=== PATIENT | male | born 1965 | race Caucasian/White ===

== ENCOUNTER 2017-11-02 10:07 | Inpatient (IN) | payer OTHER ==
[~2017-11-02] VITALS: Ht 175.3 cm; Wt 77.3 kg
--- NOTE | 2017-11-02 10:52 | ED GENERAL ADULT ---
History of Present Illness General Chief Complaint: General Adult Stated Complaint: CALLED BY DR DELEON TO COME BACK + BC Source: patient, family, old records Exam Limitations: no limitations Vital Signs & Intake/Output Vital Signs & Intake/Output Vital Signs Date Time Temp Pulse Resp B/P B/P Pulse O2 O2 Flow FiO2 Mean Ox Delivery Rate 11/02 1448 98.9 75 18 112/54 95 Room Air 11/02 1227 99.7 62 18 117/68 11/02 1227 99.7 62 18 117/68 98 Room Air 11/02 1127 99.8 11/02 1110 97 Room Air 11/02 1013 100.0 105 18 148/90 96 Room Air Allergies Coded Allergies: Pork/Porcine Containing Products (Mild, HIVES 11/02/17) chicken derived (Mild, HIVES 11/02/17) turkey (Mild, HIVES 11/02/17) Reconcile Medications No Known Home Medications Triage Note: PT RETURNS TO ED AFTER RECEIVING A CALL FROM DR. DELEON RE: + BC. PT STATES HE FEELS WEAK AND IS STILL SHAKING. Triage Nurses Notes Reviewed? yes Onset: Last week Duration: day(s):, constant, continues in ED Timing: recent history Injury Environment: home Severity: moderate, severe No Modifying Factors: none Associated Symptoms: chest pain HPI: 5 days prior to admission patient complains of right-sided chest and abdominal discomfort nausea chills body aches weakness anorexia. He was seen yesterday. He returns with continued symptoms. He denies fever vomiting diarrhea shortness of breath cough headache dysuria rash bleeding. Past History Travel History Traveled to [place] past 21 day No Medical History Any Pertinent Medical History? 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 No Review of Systems Review of Systems Constitutional: Reports: see HPI, chills, malaise, weakness. EENTM: Reports: no symptoms. Respiratory: Reports: no symptoms. Cardiovascular: Reports: see HPI, chest pain. GI: Reports: see HPI, abdominal pain, nausea. Genitourinary: Reports: no symptoms. Musculoskeletal: Reports: no symptoms. Skin: Reports: no symptoms. Neurological/Psychological: Reports: no symptoms. Hematologic/Endocrine: Reports: no symptoms. Immunologic/Allergic: Reports: no symptoms. All Other Systems: Reviewed and Negative Physical Exam Physical Exam General Appearance: well developed/nourished, alert, awake, anxious, mild distress Head: atraumatic, normal appearance Eyes: Bilateral: normal appearance, PERRL, EOMI. Ears, Nose, Throat: normal pharynx, normal ENT inspection Neck: normal inspection, supple, full range of motion, no midline tenderness Respiratory: normal breath sounds, chest non-tender, no respiratory distress, quiet respiration, lungs clear Cardiovascular: regular rate/rhythm, normal peripheral pulses, norml femoral pulses equa Peripheral Pulses: 4+ carotid (R), 4+ carotid (L) Gastrointestinal: normal bowel sounds, soft, non-tender, no organomegaly Back: normal inspection, normal range of motion, no vertebral tenderness Extremities: normal inspection, normal capillary refill, normal range of motion, no edema, no ligament instability Neurologic/Psych: no motor/sensory deficits, awake, alert, oriented x 3, normal gait, normal mood/affect, burner hand II-XII nml as tested Reflexes: 2+: bicep (R), bicep (L). Skin: intact, normal color, warm/dry Lymphatic: no anterior cervical kalee Core Measures ACS in differential dx? No CVA/TIA Diagnosis: No Sepsis Present: No Sepsis Focused Exam Completed? No Progress Differential Diagnoses I considered the following diagnoses in my evaluation of the patient: Lyme Disease anaplasmosis babesiosis Plan of Care: Orders Procedure Date/time Status Regular Diet 11/02 L Active Weight 11/02 1426 Active Vital Signs 11/02 1426 Active Teach/Educate 11/02 142 Active Pain Treatment and Response 11/02 1426 Active Nutritional Intake, Monitor 11/02 1426 Active Isolation 11/02 1426 Active Intake & Output 11/02 1426 Active Patient Care Conference 11/02 1426 Active Activity/Ambulation 11/02 1426 Active URINE OSMOLALITY 11/02 1231 Active URINE LYTES, SPOT 11/02 1231 Active URINE DRUGS OF ABUSE 11/02 1225 Complete Pathway - chart 11/02 1221 Active House Staff 11/02 1221 Active Code Status 11/02 1221 Active Intake & Output 11/02 1109 Active Patient Data 11/02 1104 Active THYROID STIMULATING HORMONE 11/02 1050 Complete PHOSPHORUS 11/02 1050 Complete MAGNESIUM 11/02 1050 Complete LACTIC ACID 11/02 1050 Complete FOLIC ACID 11/02 1050 Complete ETHANOL 11/02 1050 Complete DIRECT BILIRUBIN 11/02 1050 Complete VITAMIN B12 11/02 1050 Complete OXYGEN SETUP (GEN) 11/02 1034 Active Saline Lock 11/02 1034 Active Admit to inpatient 11/02 1034 Active Vital Signs 11/02 1034 Active Activity/Ambulation 11/02 1034 Active Code Status 11/02 1034 Complete Add-on Test (ER Only) 11/02 1021 Active BLOOD CULTURE 11/02 1021 Active COMPREHENSIVE METABOLIC PANEL 11/02 1021 Complete CBC WITHOUT DIFFERENTIAL 11/02 1021 Complete Lab Add-on Test 11/02 UNK Active VTE Mechanical Prophylaxis 11/02 UNK Active CIWA 11/02 UNK Active Current Medications Sig/Jil Start time Last Medication Dose Stop Time Status Admin Ibuprofen 400 MG Q6P PRN 11/02 1445 AC 11/02 (Motrin) 1453 Gabapentin 100 MG Q8 11/02 1400 AC 11/02 (Neurontin) 1422 Folic Acid 1 MG DAILY 11/02 1352 AC 11/02 (Folic Acid) 1422 Multivitamins 1 TAB DAILY 11/02 1352 AC 11/02 (Theragran Vitamins) 1422 Thiamine HCl 50 MG DAILY 11/02 1352 AC 11/02 (Vitamin B1) 1422 Doxycycline Hyclate 100 MG DAILY 11/02 1225 AC 11/02 (Vibramycin) 1252 Dextrose/Water 100 ML (D5W) Laboratory Tests 11/02/17 1231: Urine Opiates Screen < 100, Methadone Screen < 40, Barbiturate Screen < 60, Ur Phencyclidine Scrn < 6.00, Amphetamines Screen 151, U Benzodiazepines Scrn < 85, Urine Cocaine Screen < 50, Urine Cannabis Screen 79.50 H 11/02/17 1050: Anion Gap 11, Estimated GFR > 60, BUN/Creatinine Ratio 14.3, Glucose 106 H, Lactic Acid 0.9, Calcium 8.8, Phosphorus 2.5, Magnesium 1.8, Total Bilirubin 2.2 H, Direct Bilirubin 0.5 H, AST 33, ALT 56, Alkaline Phosphatase 74, Total Protein 7.4, Albumin 4.0, Globulin 3.4, Albumin/Globulin Ratio 1.2, Vitamin B12 410, Folate 16.2, TSH 1.420, CBC w Diff MAN DIFF ORDERED, RBC 4.57 L, MCV 91.4, MCH 32.0 H, MCHC 35.0, RDW 13.4, MPV 7.7, Gran % 60.0, Lymphocytes % 24.2, Monocytes % 15.0 H, Eosinophils % 0.2, Basophils % 0.6, Absolute Granulocytes 2.7, Segmented Neutrophils 55, Band Neutrophils 5, Absolute Lymphocytes 1.1 L, Lymphocytes 27, Monocytes 12 H, Absolute Monocytes 0.7 H, Absolute Eosinophils 0, Basophils 1, Absolute Basophils 0, Platelet Estimate DECREASED, Serum Alcohol < 10.0 Microbiology 11/02 1105 BLOOD: Blood Culture - RECD 11/02 1050 BLOOD: Blood Culture - RECD Initial ED EKG: none Departure Departure Time of Disposition: 105 Disposition: STILL A PATIENT Condition: Stable Clinical Impression Primary Impression: Anaplasmosis Secondary Impressions: Thrombocytopenia Referrals: Patient Has No Primary Care Dr (PCP/Family) Departure Forms: Customer Survey General Discharge Information Prescriptions: Current Visit Scripts No Known Home Medications Admission Note Spoke With: Prema Santos MD Documentation of Exam: Documentation of any treatments & extenuating circumstances including Concerns Regarding Discharge (functional status, medication knowledge or non-compliance, living conditions, etc.) that warrant an admission rather than observation: IV fluids IV antiemetics and IV analgesia follow cultures and titers antibiotics for anaplasmosis infectious disease evaluation continuing care discharge planning Critical Care Note Critical Care Note Critical Care Time: non-applicable
[2017-11-02 11:04] LABS: ABSOLUTE BASOPHIL COUNT 0 /CUMM (0.0-0.2); ABSOLUTE EOSINOPHIL COUNT 0 /CUMM (0.0-0.7); ABSOLUTE GRANULOCYTE CT 2.7 /CUMM (1.4-6.5); ABSOLUTE LYMPH COUNT 1.1 /CUMM (1.2-3.4); ABSOLUTE MONOCYTE COUNT 0.7 /CUMM (0.10-0.60); BASOPHIL % 0.6 % (0.0-2.0); EOSINOPHIL % 0.2 % (0-5); HEMATOCRIT 41.8 % (42-52); MEAN CORPUSCULAR VOLUME 91.4 FL (80.0-94.0); MEAN PLATELET VOLUME 7.7 FL (7.4-10.4); RBC DISTRIBUTION WIDTH 13.4 % (11.5-14.5); RED BLOOD CELL CT 4.57 /CUMM (4.70-6.10); WHITE BLOOD CELL COUNT 4.5 /CUMM (4.8-10.8)
[2017-11-02 11:36] LABS: PLATELET COUNT 61 /CUMM (130-400)
--- NOTE | 2017-11-02 12:12 | History & Physical ---
Nandini SÁNCHEZ,[facility] 11/02/17 1206: General Information and HPI MD Statement: I have seen and personally examined SHRUTI ALMANZAR and documented this H&P. The patient is a 52 year old M who presented with a patient stated chief complaint of [fever and fatigue]. Source of Information: patient, family Exam Limitations: no limitations History of Present Illness: 52-year-old male with a PMHx significant for bilateral peripheral neuropathy and alcohol abuse who presented to the ED yesterday complaining of 3 days of fever, chills, generalized fatigue, nausea and intermittent RUQ & right lower chest pain that is 2/10 and last for few minutes in the morning. The patient did not follow with any physician for long time. He is not taking any medication at home. He reports drinking 6-8 beers every other day, last drink was 4 days ago. He reports previous admission for alcohol detox but denies history of seizure, ICU admission, DT, OR hallucination. The patient reports lower extremity tingling for long years, he was told it's related to alcohol drinking, he was on Lyrica for a few years, currently he is not on any medication. The patient denies any other current active complaints. 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 Denies: diaphoresis, malaise. EENTM: Denies: visual changes, hearing changes. Cardiovascular: Denies: chest pain, orthopena, palpitations, peripheral edema, syncope. Respiratory: Reports: short of breath (BASE LINE). Denies: cough, orthopnea, sputum production, stridor, wheezing. GI: Reports: abdominal pain (INTERMITTENT, RUQ, 2/10), constipation, nausea. Denies : bloating, diarrhea, distention, vomiting. Genitourinary: Denies: dysuria, hematuria. Musculoskeletal: Reports: muscle pain. Denies: back pain, joint pain, joint swelling, muscle stiffness. Skin: Reports: lesions (MULTIPLE BITES). Neurological/Psychological: Denies: anxiety, ataxia, confusion, depressed, dementia, headache. Exam & Diagnostic Data Last 24 Hrs of Vital Signs/I&O Vital Signs Date Time Temp Pulse Resp B/P B/P Pulse O2 O2 Flow FiO2 Mean Ox Delivery Rate 11/02 1227 99.7 62 18 117/68 11/02 1227 99.7 62 18 117/68 98 Room Air 11/02 1127 99.8 11/02 1110 97 Room Air 11/02 1013 100.0 105 18 148/90 96 Room Air Intake & Output 11/02 1600 11/02 0800 11/02 0000 Intake Total 1000 Output Total Balance 1000 Intake, IV 1000 Patient 68.039 kg Weight Weight Reported by Patient Measurement Method Physical Exam General Appearance Alert, Oriented X3, Cooperative, No Acute Distress Skin MULTIPLE MOSQUITO VERSUS TICK BITES, OVER RIGHT LOWER EXTREMITY, LEFT UPPER THIGH, RIGHT LOWER BACK. NO OTHER BRUSH WERE NOTED HEENT Atraumatic, PERRLA, EOMI, Mucous Membr. moist/pink Neck No JVD Cardiovascular Regular Rate, Normal S1, Normal S2, No Murmurs Lungs Clear to Auscultation, Normal Air Movement Abdomen Normal Bowel Sounds, Soft, No Tenderness Neurological Normal Gait, Normal Speech Extremities No Clubbing, No Cyanosis, No Edema Last 24 Hrs of Labs/[place]: Laboratory Tests 11/02/17 1231: Methadone Screen Pending, Barbiturate Screen Pending, Ur Phencyclidine Scrn Pending, Amphetamines Screen Pending, U Benzodiazepines Scrn Pending, Urine Cocaine Screen Pending, Urine Cannabis Screen Pending 11/02/17 1050: Anion Gap 11, Estimated GFR > 60, BUN/Creatinine Ratio 14.3, Glucose 106 H, Lactic Acid Pending, Calcium 8.8, Phosphorus Pending, Magnesium Pending, Total Bilirubin 2.2 H, Direct Bilirubin Pending, AST 33, ALT 56, Alkaline Phosphatase 74, Total Protein 7.4, Albumin 4.0, Globulin 3.4, Albumin/Globulin Ratio 1.2, Vitamin B12 Pending, Folate Pending, TSH Pending, CBC w Diff MAN DIFF ORDERED, RBC 4.57 L, MCV 91.4, MCH 32.0 H, MCHC 35.0, RDW 13.4, MPV 7.7, Gran % 60.0, Lymphocytes % 24.2, Monocytes % 15.0 H, Eosinophils % 0.2, Basophils % 0.6, Absolute Granulocytes 2.7, Segmented Neutrophils 55, Band Neutrophils 5, Absolute Lymphocytes 1.1 L, Lymphocytes 27, Monocytes 12 H, Absolute Monocytes 0.7 H, Absolute Eosinophils 0, Basophils 1, Absolute Basophils 0, Platelet Estimate DECREASED Microbiology 11/02 1105 BLOOD: Blood Culture - RECD 11/02 1050 BLOOD: Blood Culture - RECD Assessment/Plan Assessment: This is 52-year-old male with PMHx of alcohol abuse, peripheral neuropathy, and upper GI bleed 2/2 peptic ulcer, who presented with 4 days of fever, chills, nausea, and abdominal pain. Blood smear from yesterday showed RBCs inclusion bodies suspicious for tick transmitted disease. The patient currently is not complaining of abdominal pain. He has elevated total bilirubin up to 2.2 down from 2.7 yesterday. Given his history of alcohol use with last drink being 4 days ago I do not anticipate alcohol withdrawal symptom however we will start him on CIWA score. He has mild hyponatremia possibly secondary to dehydration but given the dental mass on adrenal on CT, we will send for urine osmolarity and electrolytes. Problem list: * Fever and fatigue most likely 2/2 tick transmitted disease (TTD) * Thrombocytopenia possibly 2/2 alcohol abuse and TTD * Mild hyponatremia most likely 2/2 dehydration given poor oral intake * Elevated total bilirubin, improved compared to yesterday. 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 * Encourage oral intake, follow Na+, urine electrolytes and osmolarity * Instruct patient to follow with endocrinology for incidental adrenal mass -DVT PPx with ALPS, hold on pharmacological anticoagulation given low platelet -Regular diet -FC As Ranked By This Provider Problem List: 1. Thrombocytopenia 2. Abdominal pain 3. Lesion of adrenal gland 4. Constipation 5. Anaplasmosis Core Measures/Misc (01/26) Acute Coronary Syndrome ACS Diagnosis: No Congestive Heart Failure Congestive Heart Failure Diagnosis No Cerebrovascular Accident CVA/TIA Diagnosis: No VTE (View Protocol) VTE Risk Factors Age>40 No Mechanical VTE Prophylaxis d/t N/A MechProphylax Ordered No VTE Pharm Prophylaxis d/t Platelets below ref range Sepsis (View protocol) Sepsis Present: No If YES complete Sepsis Event Note If YES complete Sepsis Event Note Prema Santos MD 11/02/17 1544: Core Measures/Misc (01/26) Sepsis (View protocol) If YES complete Sepsis Event Note If YES complete Sepsis Event Note Attending MD Review Statement Attending Statement Attending MD Statement: examined this patient, discuss w/resident/PA/MORTICIAN INVESTIGATOR, agreed w/resident/PA/MORTICIAN INVESTIGATOR, reviewed EMR data (avail) Attending Assessment/Plan: 52M PMH bilateral peripheral neuropathy and alcohol abuse presenting with 3 days of fever, fatigue, myalgia, seen in the ED one day prior, recalled today after found to have RBC inclusions on peripheral blood smear consistent with Babesiosis. Febrile 100.0 here, stable vitals, WBC 4.3, platelets 60, normal LFTS and renal function. Patient does not recall getting bit by a tick. He is nauseous but otherwise no complaints aside from above. 1. Babesiosis 2. Thrombocytopenia Plan - Admit to general medicine - Start Atovaquone and Azithromycin - ID consult - Send babesia studies - Send Lyme and Anaplasma - Blood culture - Continue home medications - DVT PPx
[2017-11-02 12:27] VITALS: BP 117/68
[2017-11-02 14:48] VITALS: BP 112/54
--- NOTE | 2017-11-02 15:46 | Admission Certification ---
Admission Certification Certification Statement - As attending physician, I certify that at the time of - admission, based on clinical presentation, severity of - symptoms, need for further diagnostic testing and - therapeutic interventions, and risk of adverse outcomes - without in-hospital treatment, in my clinical assessment, - this patient requires an acute hospital stay for a minimum - of two nights or longer. I have also considered psychsocial - factors such as support system, advanced age, financial - issues, cognitive issues, and failed out-patient treatments, - past re-admission history, safety of patient, and lack of - compliance as applicable. Specific rationale supporting this admission is: Babesiosis with fever and thrombocytopenia
[2017-11-02 16:00] VITALS: BP 116/60
[2017-11-02 16:37] VITALS: BP 116/60
[2017-11-02 20:00] VITALS: BP 114/80
[2017-11-02 21:28] VITALS: BP 114/80
[2017-11-03] VITALS (8 sets, daily range): BP systolic 104–124; BP diastolic 56–76
--- NOTE | 2017-11-03 07:24 | PN- Housestaff ---
See Addendum Subjective Follow-up For: tick transmitted infection Subjective: febrile overnight tmax 100.5 poor appetite but was able to eat breakfast this morning complains of feeling dehydrated, fatigued, and of chronic lower extremity neuropathic pain for which he took lyrica in the past and self medicates with alcohol Review of Systems Constitutional: Reports: see HPI. Objective Last 24 Hrs of Vital Signs/I&O Vital Signs Date Time Temp Pulse Resp B/P B/P Pulse O2 O2 Flow FiO2 Mean Ox Delivery Rate 11/03 0638 99.7 11/03 0600 99.8 71 20 124/72 11/03 0540 99.8 11/03 0425 99.8 71 20 124/72 95 11/03 0001 100.5 70 20 124/76 95 11/03 0000 100.5 70 20 124/76 11/02 2128 98.4 66 20 114/80 96 11/02 2000 98.4 66 20 114/80 11/02 1637 98.6 57 20 116/60 95 Room Air 11/02 1600 98.6 57 20 116/60 11/02 1448 98.9 75 18 112/54 95 Room Air 11/02 1227 99.7 62 18 117/68 11/02 1227 99.7 62 18 117/68 98 Room Air Intake & Output 11/03 1600 11/03 0800 11/03 0000 Intake Total 120 460 Output Total 200 300 Balance -80 160 Intake, IV 260 Intake, Oral 120 200 Number 0 Bowel Movements Output, Urine 200 300 Physical Exam General Appearance: Alert, Oriented X3, Cooperative, No Acute Distress Cardiovascular: Regular Rate, Normal S1, Normal S2, No Murmurs Lungs: Clear to Auscultation, Normal Air Movement Abdomen: Normal Bowel Sounds, Soft, No Tenderness, No Masses Extremities: No Clubbing, No Cyanosis, No Edema, Normal Pulses Current Medications: Current Medications Sig/Jil Start time Last Medication Dose Route Stop Time Status Admin Atovaquone 750 MG BID 11/02 2099 AC 11/03 PO 0800 Atovaquone 750 MG DAILY 11/02 1630 DC PO Azithromycin 250 MG DAILY 11/03 0900 AC 11/03 PO 11/06 0901 0800 Azithromycin 500 MG Q24H 11/02 1800 DC 11/02 Sodium Chloride 250 ML IV 11/02 2300 1811 Doxycycline Hyclate 100 MG BID 11/02 2099 AC 11/03 PO 0800 Doxycycline Hyclate 100 MG DAILY 11/02 1225 DC 11/02 Dextrose/Water 100 ML IV 11/02 2100 1252 Folic Acid 1 MG DAILY 11/02 1352 AC 11/03 PO 0800 Gabapentin 100 MG Q8 11/02 1400 AC 11/03 PO 0530 Ibuprofen 400 MG Q6P PRN 11/02 1445 AC 11/03 PO 0540 Multivitamins 1 TAB DAILY 11/02 1352 AC 11/03 PO 0800 Sodium Chloride 1,000 ML Q10H 11/03 0845 AC IV 11/03 1844 Thiamine HCl 50 MG DAILY 11/02 1352 AC 11/03 PO 0800 Last 24 Hrs of Lab/[place] Results Last 24 Hrs of Labs/Mics: Laboratory Tests 11/03/17 0745: Anion Gap 8, Estimated GFR > 60, BUN/Creatinine Ratio 12.9, CBC w Diff NO MAN DIFF REQ, RBC 4.16 L, MCV 91.8, MCH 31.9 H, MCHC 34.7, RDW 13.6, MPV 8.2, Gran % 45.6, Lymphocytes % 37.3, Monocytes % 15.4 H, Eosinophils % 0.9, Basophils % 0.8, Absolute Granulocytes 1.6, Absolute Lymphocytes 1.3, Absolute Monocytes 0.5 , Absolute Eosinophils 0, Absolute Basophils 0 11/02/17 1231: Urine Osmolality Cancelled, Ur Random Creatinine Cancelled, Ur Random Sodium Cancelled, Ur Random Potassium Cancelled, Fraction Sodium Excret Cancelled 11/02/17 1231: Urine Opiates Screen < 100, Methadone Screen < 40, Barbiturate Screen < 60, Ur Phencyclidine Scrn < 6.00, Amphetamines Screen 151, U Benzodiazepines Scrn < 85, Urine Cocaine Screen < 50, Urine Cannabis Screen 79.50 H, Urine Osmolality 707, Ur Random Creatinine 147.7, Ur Random Sodium 113 H, Ur Random Potassium 44.6, Fraction Sodium Excret 0.4 Assessment/Plan Assessment: 52 year old male with PMH of alcohol abuse, peripheral neuropathy, and upper GI bleed 2/2 peptic ulcer disease presented with complaints of several days of fever, chills, nausea, abdominal pain, and anorexia. A peripheral smear ordered from ED visit showed RBCs inclusion bodies suspicious for tick transmitted disease. Tick transmitted disease: Probable babesia infection Fever to 100.5 overnight Complains of fatigue, poor appetite, leukopenia, thrombocytopenia and hyperbilirubinemia Some laboratory derangements could be attributed to alcohol but were previously wnl 2017 RBC inclusions noted of previous ED visit Tick panel pending Continue azithromycin, atovaquone, and clindamycin for probable babesia infection Infectious disease consultation Spleen is slightly enlarged on CT Trend CBC to monitor for hemolysis Repeat peripheral smear tomorrow to monitor response to treatment History of alcohol abuse: CIWA scoring Vitamin supplements Start gabapentin 100mg TID for neuropathy Incidental adrenal mass: Outpatient endocrinology follow up 2.5 x 2.8 cm low-attenuation right adrenal lesion Regular diet DVT ppx-ALPs, no anticoagulation with thrombocytopenia Full code Problem List: 1. Thrombocytopenia 2. Abdominal pain 3. Lesion of adrenal gland 4. Tick-borne fever Pain Ratin Pain Location: b/l LE Pain Goal: Pain 4 or less Pain Plan: neurontin Tomorrow's Labs & Rationales: cbc, lfts
[2017-11-03 09:09] LABS: ABSOLUTE BASOPHIL COUNT 0 /CUMM (0.0-0.2); ABSOLUTE EOSINOPHIL COUNT 0 /CUMM (0.0-0.7); ABSOLUTE MONOCYTE COUNT 0.5 /CUMM (0.10-0.60); WHITE BLOOD CELL COUNT 3.4 /CUMM (4.8-10.8)
[2017-11-03 09:46] LABS: ABSOLUTE GRANULOCYTE CT 1.6 /CUMM (1.4-6.5); ABSOLUTE LYMPH COUNT 1.3 /CUMM (1.2-3.4); BASOPHIL % 0.8 % (0.0-2.0); EOSINOPHIL % 0.9 % (0-5); GRANULOCYTE % 45.6 % (42.2-75.2); HEMATOCRIT 38.2 % (42-52); MEAN CORPUSCULAR HGB 31.9 PG (27.0-31.0); MEAN CORPUSCULAR HGB CONC 34.7 G/DL (33.0-37.0); MEAN CORPUSCULAR VOLUME 91.8 FL (80.0-94.0); MEAN PLATELET VOLUME 8.2 FL (7.4-10.4); RBC DISTRIBUTION WIDTH 13.6 % (11.5-14.5)
[2017-11-03 10:20] LABS: PLATELET COUNT 59 /CUMM (130-400)
[2017-11-03 10:23] LABS: RED BLOOD CELL CT 4.16 /CUMM (4.70-6.10)
--- NOTE | 2017-11-03 12:30 | Cons- Infect Disease ---
General Information and HPI Consulting Request Date of Consult: 11/03/17 Requested By: Eduarda Brower MD Reason for Consult: Peripheral smear with intra-erythrocytic ring forms Source of Information: patient, old records Exam Limitations: poor historian History of Present Illness: This is a 52-year-old man with a history of a peripheral neuropathy, presumably alcohol induced, seen in the emergency room one day prior to admission with a three day history of right upper quadrant/epigastric pain, nausea with decreased p.o. intake and weakness, found to be afebrile with a white blood cell count of 4.8, H&H of 15 and 43 and a platelet count of 67,000, with a negative urinalysis and a CT of the abdomen and pelvis revealing a right adrenal lesion, discharged home and called back on the next day, November 02, for admission because of the peripheral smear results. On admission he had a temperature of 100. Laboratory data revealed a white blood cell count of 4.5, H&H 15 and 42 and platelets 61, 000, BUN/creatinine 10 and 0.7, bilirubin 2.2. He was begun on Azithromycin and Atovaquone as well as Doxycycline. He had a low-grade fever to 100.5 overnight. At present he feels somewhat improved with decreased abdominal pain. 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 Home Services at Home: None Smoking Status: Current Everyday Smoker ETOH Use: occasional use Illicit Drug Use: denies illicit drug use Review of Systems Review of Systems All Other Systems: Reviewed and Negative Exam & Diagnostic Data Last 24 Hrs of Vital Signs/I&O Vital Signs Date Time Temp Pulse Resp B/P B/P Pulse O2 O2 Flow FiO2 Mean Ox Delivery Rate 11/03 0638 99.7 11/03 0600 99.8 71 20 124/72 11/03 0540 99.8 11/03 0425 99.8 71 20 124/72 95 11/03 0001 100.5 70 20 124/76 95 11/03 0000 100.5 70 20 124/76 11/02 2128 98.4 66 20 114/80 96 11/02 2000 98.4 66 20 114/80 11/02 1637 98.6 57 20 116/60 95 Room Air 11/02 1600 98.6 57 20 116/60 11/02 1448 98.9 75 18 112/54 95 Room Air 11/02 1227 99.7 62 18 117/68 11/02 1227 99.7 62 18 117/68 98 Room Air Intake & Output 11/03 1600 11/03 0800 11/03 0000 Intake Total 120 460 Output Total 200 300 Balance -80 160 Intake, IV 260 Intake, Oral 120 200 Number 0 Bowel Movements Output, Urine 200 300 Physical Exam Other Physical Findings: He is awake and alert in no acute distress. T-max 100.5. Skin reveals two small erythematous lesions, one in the right axilla and one in the left groin, with no bull's-eye rash. HEENT exam is negative. Neck is supple with no adenopathy. Lungs are clear. Heart regular rhythm with no murmur. Abdomen is soft, nontender with positive bowel sounds. Back no CVA tenderness. Extremities no cyanosis, clubbing or edema. Neuro is without focality. Last 24 Hours of Lab Results: Laboratory Tests 11/03 11/02 11/02 0745 1231 1231 Chemistry Sodium (137 - 145 mmol/L) 136 L Potassium (3.5 - 5.1 mmol/L) 3.8 Chloride (98 - 107 mmol/L) 103 Carbon Dioxide (22 - 30 mmol/L) 25 Anion Gap (5 - 16) 8 BUN (9 - 20 mg/dL) 9 Creatinine (0.7 - 1.2 mg/dL) 0.7 Estimated GFR (>60 ml/min) > 60 BUN/Creatinine Ratio (7 - 25 %) 12.9 Hematology CBC w Diff NO MAN DIFF REQ WBC (4.8 - 10.8 /CUMM) 3.4 L RBC (4.70 - 6.10 /CUMM) 4.16 L Hgb (14.0 - 18.0 G/DL) 13.3 L Hct (42 - 52 %) 38.2 L MCV (80.0 - 94.0 FL) 91.8 MCH (27.0 - 31.0 PG) 31.9 H MCHC (33.0 - 37.0 G/DL) 34.7 RDW (11.5 - 14.5 %) 13.6 Plt Count (130 - 400 /CUMM) 59 L MPV (7.4 - 10.4 FL) 8.2 Gran % (42.2 - 75.2 %) 45.6 Lymphocytes % (20.5 - 51.1 %) 37.3 Monocytes % (1.7 - 9.3 %) 15.4 H Eosinophils % (0 - 5 %) 0.9 Basophils % (0.0 - 2.0 %) 0.8 Absolute Granulocytes (1.4 - 6.5 /CUMM) 1.6 Absolute Lymphocytes (1.2 - 3.4 /CUMM) 1.3 Absolute Monocytes (0.10 - 0.60 /CUMM) 0.5 Absolute Eosinophils (0.0 - 0.7 /CUMM) 0 Absolute Basophils (0.0 - 0.2 /CUMM) 0 Toxicology Urine Opiates Screen (>2000 NG/ML) < 100 Methadone Screen (>300 NG/ML) < 40 Barbiturate Screen (>200 NG/ML) < 60 Ur Phencyclidine Scrn (>25 NG/ML) < 6.00 Amphetamines Screen (>1000 NG/ML) 151 U Benzodiazepines Scrn (>200 NG/ML) < 85 Urine Cocaine Screen (>300 NG/ML) < 50 Urine Cannabis Screen (>50 NG/ML) 79.50 H Urines Urine Osmolality (300 - 1000 MOSM/KG) Cancelled 707 Ur Random Creatinine (mg/dL) Cancelled 147.7 Ur Random Sodium (30 - 90 mmol/L) Cancelled 113 H Ur Random Potassium (mmol/L) Cancelled 44.6 Fraction Sodium Excret (<1% %) Cancelled 0.4 Last 24 Hours of [place] Results: Blood cultures 2 November 02 negative Assessment/Plan Assessment/Plan Impression: This is a 52-year-old man with no significant past medical history admitted on November 02 after presenting to the emergency room on the day prior to admission with several days of right upper quadrant pain, nausea, decreased p.o. intake and weakness, found to have thrombocytopenia and intra-erythrocytic ring forms on his peripheral smear. 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 This iinfection is transmitted by the Ixodes scapularis tick, which is the same tick that carries Lyme disease and Anaplasma; therefore co-infection must be considered and it is reasonable to treat for possible co-infection with Lyme/Anaplasma pending further evaluation. His elevated bilirubin may be secondary to hemolysis, with his H&H decreased today, or alcohol. Suggestion: 1. Lyme titer 2. Follow-up Babesia PCR 3. Follow-up Anaplasma PCR 4. Continue Atovaquone and Azithromycin to plan on a 7 to 10 day course 5. Continue Doxycycline pending above Consult Acknowledgment - Thank you for your consult request.
[2017-11-04 04:10] VITALS: BP 110/70
--- NOTE | 2017-11-04 07:24 | PN- Housestaff ---
See Addendum Subjective Follow-up For: tick transmitted disease Subjective: afebrile overnight on antibiotics only complaint today is headache, appetite is improved Review of Systems Constitutional: Reports: see HPI. Objective Last 24 Hrs of Vital Signs/I&O Vital Signs Date Time Temp Pulse Resp B/P B/P Pulse O2 O2 Flow FiO2 Mean Ox Delivery Rate 11/04 0800 98.8 59 20 100/70 97 Room Air 11/04 0410 98.6 56 20 110/70 97 Room Air 11/03 2052 98.5 56 18 104/68 97 Room Air 11/03 2000 98.5 56 18 104/68 11/03 1600 98.6 64 18 118/73 11/03 1600 98.6 64 18 118/73 92 Room Air 11/03 1437 98.6 60 20 110/56 97 Room Air Intake & Output 11/04 1600 11/04 0800 11/04 0000 Intake Total 480 810 Output Total 600 500 Balance -120 310 Intake, IV 410 Intake, Oral 480 400 Number 0 Bowel Movements Output, Urine 600 500 Physical Exam General Appearance: Alert, Oriented X3, Cooperative, No Acute Distress Cardiovascular: Regular Rate, Normal S1, Normal S2, No Murmurs Lungs: Clear to Auscultation, Normal Air Movement Abdomen: Normal Bowel Sounds, Soft, No Tenderness, No Masses Extremities: No Clubbing, No Cyanosis, No Edema, Normal Pulses Current Medications: Current Medications Sig/Jil Start time Last Medication Dose Route Stop Time Status Admin Atovaquone 750 MG BID 11/02 2099 AC 11/04 PO 0748 Azithromycin 250 MG DAILY 11/03 0900 AC 11/04 PO 11/06 0901 0748 Doxycycline Hyclate 100 MG BID 11/02 2100 AC 11/04 PO 0748 Folic Acid 1 MG DAILY 11/02 1352 AC 11/04 PO 0749 Gabapentin 100 MG Q8 11/02 1400 AC 11/04 PO 0537 Ibuprofen 400 MG Q6P PRN 11/02 1445 AC 11/04 PO 0753 Multivitamins 1 TAB DAILY 11/02 1352 AC 11/04 PO 0748 Sodium Chloride 1,000 ML Q10H 11/03 0845 DC 11/03 IV 11/03 1844 0930 Thiamine HCl 50 MG DAILY 11/02 1352 11/04 PO 0748 Last 24 Hrs of Lab/[place] Results Last 24 Hrs of Labs/Mics: Laboratory Tests 11/04/17 0557: Anion Gap 7, Estimated GFR > 60, BUN/Creatinine Ratio 16.7, Total Bilirubin 0.8, Direct Bilirubin 0.3, AST 28, ALT 38, Alkaline Phosphatase 67, Total Protein 6.0 L, Albumin 2.8 L, CBC w Diff MAN DIFF ORDERED, RBC 3.89 L, MCV 92.1, MCH 31.5 H, MCHC 34.2, RDW 13.9, MPV 8.5, Gran % 38.8 L, Lymphocytes % 47.6, Monocytes % 11.7 H, Eosinophils % 1.1, Basophils % 0.8, Absolute Granulocytes 1.6, Segmented Neutrophils 38 L, Band Neutrophils 2, Absolute Lymphocytes 1.9, Lymphocytes 49, Monocytes 10 H, Absolute Monocytes 0.5, Eosinophils 1, Absolute Eosinophils 0, Absolute Basophils 0, Platelet Estimate DECREASED, Normocytic RBCs VERIFIED, Normochromic RBCs VERIFIED Assessment/Plan Assessment: 52 year old male with PMH of alcohol abuse, peripheral neuropathy, and upper GI bleed 2/2 peptic ulcer disease presented with complaints of several days of fever, chills, nausea, abdominal pain, and anorexia. A peripheral smear ordered from ED visit showed RBCs inclusion bodies suspicious for tick transmitted disease. 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 Thrombocytopenia 2. Tick-borne fever 3. Lesion of adrenal gland Pain Ratin Pain Location: headache Pain Goal: Pain 4 or less Pain Plan: tylenol prn Tomorrow's Labs & Rationales: cbc as an outpatient
[2017-11-04 08:00] VITALS: BP 100/70
[2017-11-04 08:06] LABS: ABSOLUTE BASOPHIL COUNT 0 /CUMM (0.0-0.2); ABSOLUTE EOSINOPHIL COUNT 0 /CUMM (0.0-0.7); ABSOLUTE GRANULOCYTE CT 1.6 /CUMM (1.4-6.5); ABSOLUTE LYMPH COUNT 1.9 /CUMM (1.2-3.4); ABSOLUTE MONOCYTE COUNT 0.5 /CUMM (0.10-0.60); BASOPHIL % 0.8 % (0.0-2.0); EOSINOPHIL % 1.1 % (0-5); GRANULOCYTE % 38.8 % (42.2-75.2); HEMATOCRIT 35.8 % (42-52); MEAN CORPUSCULAR HGB 31.5 PG (27.0-31.0); MEAN CORPUSCULAR HGB CONC 34.2 G/DL (33.0-37.0); MEAN CORPUSCULAR VOLUME 92.1 FL (80.0-94.0); MEAN PLATELET VOLUME 8.5 FL (7.4-10.4); PLATELET COUNT 68 /CUMM (130-400); RBC DISTRIBUTION WIDTH 13.9 % (11.5-14.5); RED BLOOD CELL CT 3.89 /CUMM (4.70-6.10)
--- NOTE | 2017-11-04 09:18 | Discharge Summary ---
Visit Information Visit Dates Admission Date: 11/02/17 Discharge Date: 11/04/17 Hospital Course Course Attending Physician: Eduarda Brower MD Primary Care Physician: Patient Has No Primary Care Dr Hospital Course: 52 year old man with a history of a alcohol use disorder, peripheral neuropathy, and peptic ulcer disease with a history of GI bleeding, presented with complaints of abdominal pain, nausea, anorexia, chills, and malaise. He spiked a fever to 100.5, labs were notable for leukopenia, thrombocytopenia, and hyperbilirubinemia. He had a peripheral smear which showed ring form RBC inclusions. He was called back and admitted for a probable babesia infection given these findings. 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 A CT scan of the abdomen and pelvis revealed an incidental finding of a right adrenal lesion. Lyme titer, babesia, and anaplasma tick panels were performed but results pending. He was started on Azithromycin and Atovaquone as well as Doxycycline in consultation with infectious disease. His CBC's were monitored and there was no evidence of significant hemolysis, and stable leukopenia and thrombocytopenia. He was then discharged on a total ten day course of azithromycin, atovaquone, and doxycycline for possible coinfection with Lyme and Anaplasma. He was given a referral to Dr. Bruno for primary care follow up and instructed to have a follow up CBC several days after discharge. He was also given referral information for Dr. Mendoza of endocrinology to follow up the incidental < 3cm right adrenal mass finding. Allergies: Coded Allergies: Pork/Porcine Containing Products (Mild, HIVES 11/02/17) chicken derived (Mild, HIVES 11/02/17) turkey (Mild, HIVES 11/02/17) Significant Procedures: SERVICE DATE: 11/01/17 EXAM TYPE: CAT - CT ABD & PELVIS W IV CONTRAST EXAMINATION: CT ABDOMEN AND PELVIS WITH CONTRAST CLINICAL INFORMATION: Right flank pain COMPARISON: None TECHNIQUE: Multidetector volumetric imaging was performed of the abdomen and pelvis following IV administration of 95 mL of Optiray 320 intravenous contrast. Sagittal and coronal reformatted images were obtained on the technologist's workstation. DLP: 272 mGy-cm FINDINGS: LUNG BASES: The visualized lung bases are unremarkable. LIVER, GALLBLADDER, AND BILIARY TREE: The liver is normal in size, shape, and attenuation. No focal hepatic lesion or biliary ductal dilatation is present. The gallbladder is unremarkable with no evidence of radiopaque gallstones, gallbladder wall thickening, or obvious pericholecystic inflammatory changes. PANCREAS: Unremarkable. SPLEEN: There are calcifications in the spleen probably related to old granulomatous disease. Spleen is slightly enlarged measuring 13.6 cm in length. ADRENAL GLANDS: There is a 2.5 x 2.8 cm low-attenuation right adrenal lesion. Hounsfield units following IV contrast measure 25 which is indeterminate. The left adrenal gland is normal. KIDNEYS AND URETERS: There is focal cortical thinning or scarring in the upper pole of the left kidney. There is a small low-attenuation lesion in the anterior mid left kidney. This is too small to definitively characterize but probably represents a cyst. Kidneys are otherwise unremarkable. No renal stone is seen. No hydronephrosis, ureteral dilatation or ureteral stone is seen. BLADDER: Unremarkable. GASTROINTESTINAL TRACT: There is evidence of diverticulosis of the colon. Small and large bowel is otherwise unremarkable. The appendix is unremarkable. ABDOMINAL WALL: There is a small umbilical hernia containing fat. LYMPH NODES: There are no enlarged lymph nodes. There is no ascites. VASCULAR: Unremarkable. PELVIC VISCERA: The prostate gland does not appear enlarged. OSSEOUS STRUCTURES: There is a 1 cm anterior subluxation of L4 with respect L5 and bilateral L4 pars defect. There is evidence of mild degenerative disc disease at L4-L5. IMPRESSION: No renal stone or hydronephrosis seen. Focal renal cortical thinning or scarring in the upper pole of the left kidney. Diverticulosis. No evidence of diverticulitis. Slightly enlarged and. 2.5 x 2.8 cm indeterminant right adrenal lesion. 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 Repeat CBC as an outpatient and you have been given a referral to endocrinology for an incidentally discovered adrenal mass. Medications at Discharge Discharge Medications: Start taking the following new medications: Azithromycin (Azithromycin) 250 MG TABLET 250 Milligram ORAL DAILY Qty = 8 No Refills Instructions: . Comments: Last Taken: 11/04/17 Time: 0745 Doxycycline Hyclate (Doxycycline Hyclate) 100 MG CAPSULE 100 Milligram ORAL TWICE DAILY Qty = 16 No Refills Instructions: . Comments: Last Taken: 11/04/17 Time: 0745 AM Atovaquone (Mepron) 750 MG/5 ML ORAL.SUSP 750 Milligram ORAL TWICE DAILY Qty = 16 No Refills Instructions: . Comments: Last Taken: 11/04/17 Time: 0745 AM Gabapentin (Gabapentin) 100 MG CAPSULE 1 Capsule ORAL THREE TIMES DAILY Qty = 90 No Refills Comments: Last Taken: 11/04/17 Time: 0530 AM Copies To: Damion SÁNCHEZ,Iggy Mendoza MD,Ailyn Attending MD Review Statement Documenting Attending: Eduarda Brower MD
[2017-11-04] MEDS ORDERED: MEPRON750 MG/51 PO ×2 (09:19→10:45)
[2017-11-04] MEDS ORDERED: DOXYCYCLINE HY100 M2 PO ×2 (09:19→10:45)
[2017-11-04] MEDS ORDERED: AZITHROMYCIN250 M1 PO ×2 (09:19→10:45)
--- NOTE | 2017-11-04 09:21 | Patient Discharge Instructions ---
Discharge Instructions General Discharge Information You were seen/treated for: TICK TRANSMITTED DISEASE Special Instructions: Take your antibiotics as prescribed for a total of ten days. Follow up with your primary care physician. Acute Coronary Syndrome Inclusion Criteria At DC or during hospital stay patient has or had the following: ACS DIAGNOSIS No Discharge Core Measures Meds if any: Prescribed or Continued at Discharge Meds if any: NOT Prescribed or Continued at Discharge Congestive Heart Failure Inclusion Criteria At DC or during hospital stay patient has or had the following: CHF DIAGNOSIS No Discharge Core Measures Meds if any: Prescribed or Continued at Discharge Meds if any: NOT Prescribed or Continued at Discharge Cerebrovascular accident Inclusion Criteria At DC or during hospital stay patient has or had the following: CVA/TIA Diagnosis No Discharge Core Measures Meds if any: Prescribed or Continued at Discharge Meds if any: NOT Prescribed or Continued at Discharge Venous thromboembolism Inclusion Criteria VTE Diagnosis No VTE Type NONE VTE Confirmed by (Test) NONE Discharge Core Measures - Per Current guidelines, there needs to be overlap - treatment for the first 5 days of Warfarin therapy. - If discharged on Warfarin prior to 5 days of - overlap therapy, the patient will need to be - assessed for post discharge needs including - *Post discharge parental anticoagulation - *Warfarin and/or parental anticoagulation education - *Follow up date to check INR post discharge At least 5 days overlap therapy as Inpatient No Meds if any: Prescribed or Continued at Discharge Note: Overlap Therapy is Warfarin and Anticoagulant Meds if any: NOT Prescribed or Continued at Discharge
[2017-11-04] MEDS ORDERED: GABAPENTIN100 M2 PO (11:10)
[2017-11-04 12:17] VITALS: BP 120/76
--- NOTE | 2017-11-04 13:15 | PN- Infect Dx ---
Subjective Subjective: Afebrile. He continues to complain of sweats. He did have a headache earlier today but it has resolved. Objective Last 24 Hrs of Vital Signs/I&O Vital Signs Date Time Temp Pulse Resp B/P B/P Pulse O2 O2 Flow FiO2 Mean Ox Delivery Rate 11/04 1217 98.1 69 20 120/76 99 Room Air 11/04 0800 98.8 59 20 100/70 97 Room Air 11/04 0410 98.6 56 20 110/70 97 Room Air 11/03 2052 98.5 56 18 104/68 97 Room Air 11/03 2000 98.5 56 18 104/68 11/03 1600 98.6 64 18 118/73 11/03 1600 98.6 64 18 118/73 92 Room Air 11/03 1437 98.6 60 20 110/56 97 Room Air Intake & Output 11/04 1600 11/04 0800 11/04 0000 Intake Total 480 810 Output Total 600 500 Balance -120 310 Intake, IV 410 Intake, Oral 480 400 Number 0 Bowel Movements Output, Urine 600 500 Physical Exam Other Physical Findings: He appears comfortable in no acute distress Skin diaphoretic with no rash Neck is supple with no adenopathy Lungs are clear Heart regular rhythm with no murmur Results Last 24 Hours of Lab Results: Laboratory Tests 11/04 0557 Chemistry Sodium (137 - 145 mmol/L) 136 L Potassium (3.5 - 5.1 mmol/L) 4.1 Chloride (98 - 107 mmol/L) 104 Carbon Dioxide (22 - 30 mmol/L) 25 Anion Gap (5 - 16) 7 BUN (9 - 20 mg/dL) 10 Creatinine (0.7 - 1.2 mg/dL) 0.6 L Estimated GFR (>60 ml/min) > 60 BUN/Creatinine Ratio (7 - 25 %) 16.7 Total Bilirubin (0.2 - 1.3 mg/dL) 0.8 Direct Bilirubin (< 0.4 mg/dL) 0.3 AST (17 - 59 U/L) 28 ALT (21 - 72 U/L) 38 Alkaline Phosphatase (< 127 U/L) 67 Total Protein (6.3 - 8.2 g/dL) 6.0 L Albumin (3.5 - 5.0 g/dL) 2.8 L Hematology CBC w Diff MAN DIFF ORDERED WBC (4.8 - 10.8 /CUMM) 4.0 L RBC (4.70 - 6.10 /CUMM) 3.89 L Hgb (14.0 - 18.0 G/DL) 12.2 L Hct (42 - 52 %) 35.8 L MCV (80.0 - 94.0 FL) 92.1 MCH (27.0 - 31.0 PG) 31.5 H MCHC (33.0 - 37.0 G/DL) 34.2 RDW (11.5 - 14.5 %) 13.9 Plt Count (130 - 400 /CUMM) 68 L MPV (7.4 - 10.4 FL) 8.5 Gran % (42.2 - 75.2 %) 38.8 L Lymphocytes % (20.5 - 51.1 %) 47.6 Monocytes % (1.7 - 9.3 %) 11.7 H Eosinophils % (0 - 5 %) 1.1 Basophils % (0.0 - 2.0 %) 0.8 Absolute Granulocytes (1.4 - 6.5 /CUMM) 1.6 Segmented Neutrophils (42.2 - 75.2 %) 38 L Band Neutrophils (0.0 - 5.0 %) 2 Absolute Lymphocytes (1.2 - 3.4 /CUMM) 1.9 Lymphocytes (20.5 - 51.1 %) 49 Monocytes (1.7 - 9.3 %) 10 H Absolute Monocytes (0.10 - 0.60 /CUMM) 0.5 Eosinophils (0 - 5.0 %) 1 Absolute Eosinophils (0.0 - 0.7 /CUMM) 0 Absolute Basophils (0.0 - 0.2 /CUMM) 0 Platelet Estimate (ADEQUATE) DECREASED Normocytic RBCs VERIFIED Normochromic RBCs VERIFIED Last 24 Hours of [place] Results: Blood cultures November 02 negative Assessment/Plan ID Impression: Stable, with temperatures normal, on Azithromycin and Atovaquone, Day 2 of treatment for presumed Babesiosis, with intra-erythrocytic ring forms noted on the peripheral smear, and Doxycycline, Day 2 of treatment for possible coinfection with Anaplasma and/or Lyme. His white blood cell count and platelet count are increasing, but his H&H has decreased, possibly secondary to hemolysis , suggested by the elevated bilirubin on admission. Suggestion: 1. Follow-up tick disease panel 2. Continue Atovaquone and Azithromycin to complete a total of 7-10 days 3. Continue Doxycycline to complete a total of 10 days
== END 2017-11-04 12:30 | DRG 724 ==
LOC: ERH 10:07 → 2NB 10:34 → ERHI 10:34 → ENRESERV 11:21 → ENTRNSPT 13:32 → EDTRNSPTSTS 13:34 → EDTRNSPT 13:34 → 2NB 13:43 → CMPTRNSPT 14:02 → 2NB 11-03 07:39 → ENPENDDIS 11-04 10:50 → 2NB 11-04 12:30
PROVIDERS: Emergency Medicine; Internal Medicine; Student in an Organized Health Care Education/Training Program
DX: B60.0 Babesiosis (principal); R63.0 Anorexia; Z68.25 Body mass index [BMI] 25.0-25.9, adult; D69.6 Thrombocytopenia, unspecified; A77.49 Other ehrlichiosis; G62.9 Polyneuropathy, unspecified; E80.6 Other disorders of bilirubin metabolism; F10.10 Alcohol abuse, uncomplicated; E87.1 Hypo-osmolality and hyponatremia; E27.9 Disorder of adrenal gland, unspecified; K59.00 Constipation, unspecified
CPT/HCPCS: 2NBSP; 84133; 84300; 86317; 86618; 87798; 36415; 74177; 80307; 81001; 82436; 82570; 87040; 93005; 93010; 96361; 96374; G0480; J0456; J3490; J7040